=== PATIENT | male | born 1950 | race Caucasian/White ===

== ENCOUNTER 2017-07-10 09:30 | Outpatient (CLI) | payer MEDICARE ==
--- NOTE | 2017-07-10 10:40 | RAD ---
TWO VIEWS CHEST: HISTORY: Dyspnea. FINDINGS: PA and lateral views of the chest were obtained on 07/10/17. PA and lateral views of the chest demonstrate the lungs to be well aerated. No evidence of active i ntrathoracic disease is seen. No evidence of effusions, pneumonia, or pneumothorax seen. IMPRESSION: Unremarkable 2 views chest. POS: [facility]
== END 2017-07-10 09:31 | disposition home or self-care (01) ==
LOC: RAD 09:30
PROVIDERS: ATTEND Internal Medicine Critical Care Medicine
DX: R06.00 Dyspnea, unspecified (principal)
CPT/HCPCS: 71020

== ENCOUNTER 2017-08-13 09:49 | Outpatient (CLI) | payer MEDICARE ==
--- NOTE | 2017-08-13 11:14 | RAD ---
TWO VIEWS CHEST: Date: 08-13-17 Comparison: 07-10-17 History: Other pulmonary embolism with acute core pulmonale. FINDINGS: The heart and mediastinal contours are stable. There is no pneumothorax, pleural fluid, focal consol idation or alveolar edema. There is atherosclerotic calcification in the aortic arch. IMPRESSION: No acute findings. POS: [facility]
== END 2017-08-13 09:50 | disposition home or self-care (01) ==
LOC: RAD 09:49
PROVIDERS: ATTEND Family Medicine
DX: I26.09 Other pulmonary embolism with acute cor pulmonale (principal)
CPT/HCPCS: 71020